=== PATIENT | female | born 1975 | race African-American/Black ===

== ENCOUNTER 2019-12-19 09:45 | Emergency (ER) | payer SELFPAY ==
[~2019-12-19] VITALS: Ht 162.6 cm; Wt 118.1 kg
[~2019-12-19 09:45] MED LIST: ADAL40PE SQ; BENZ56.72 TP; CLIN75CA2 PO; ETAN50DI2 SQ; FURO20TA3 PO; HYDR-3135 PO; IBUP-1060 PO; MELO7.5T29 PO; TIZA4TAB2 PO; TRAM50TA PO
[2019-12-19 11:10] LABS: BILIRUBIN,URINE NEGATIVE (NEG); CLARITY,URINE CLOUDY; COLOR,URINE YELLOW; NITRITE,URINE NEGATIVE (NEG); PH,URINE 5.5; PROTEIN,URINE NEGATIVE (NEG-TRACE)
[2019-12-19 11:12] LABS: BASO % 0 % (0-3); EOS # 0.2 x10^3/uL (0.0-0.7); EOS % 3 % (0-3); HEMATOCRIT 36.9 % (36.0-47.0); HEMOGLOBIN 12.4 g/dL (12.0-15.5); LYMPH # 2.6 x10^3/uL (1.0-4.8); LYMPH % 37 % (24-48); MEAN CORPUSCULAR HEMOGLOBIN 29 pg (25-35); MEAN CORPUSCULAR HGB CONC 34 g/dL (31-37); MEAN CORPUSCULAR VOLUME 87 fL (79-100); MONO # 0.5 x10^3/uL (0.0-1.1); MONO % 7 % (0-9); NEUT # 3.8 x10^3/uL (1.8-7.7); NEUT % 54 % (31-73); PLATELET COUNT 284 x10^3/uL (140-400); RED BLOOD COUNT 4.24 x10^6/uL (3.50-5.40); RED CELL DISTRIBUTION WIDTH 14.2 % (11.5-14.5); WHITE BLOOD COUNT 7.1 x10^3/uL (4.0-11.0)
[2019-12-19 11:23] LABS: CALCIUM 8.6 mg/dL (8.5-10.1); CREATININE 0.8 mg/dL (0.6-1.0); GFR 93.4; POTASSIUM 3.8 mmol/L (3.5-5.1)
[2019-12-19 11:27] LABS: ALBUMIN 3.3 g/dL (3.4-5.0); ALBUMIN/GLOBULIN RATIO 0.9 (1.0-1.7); TOTAL BILIRUBIN 0.6 mg/dL (0.2-1.0); TOTAL PROTEIN 7.1 g/dL (6.4-8.2)
[2019-12-19 11:34] LABS: SQUAMOUS EPITHELIAL CELL,UR MANY /LPF
[2019-12-19 11:42] LABS: BACTERIA,URINE MODERATE /HPF (0-FEW); RBC,URINE OCC /HPF (0-2); TRICHOMONAS,URINE PRESENT
[2019-12-19] MEDS ORDERED: IV NORMAL SALINE 1000ML BAG 1,000 ML IV ONE (12:00)
[2019-12-19] MEDS ORDERED: cefTRIAXone IV Push 1 GM VIAL. IVP ONE (12:15)
[2019-12-19] MEDS ORDERED: IOHEXOL 300 MG/ML 100ML VIAL. IV ONE (12:15)
[2019-12-19] MEDS ORDERED: CIPR500T94 PO (12:28)
[2019-12-19] MEDS ORDERED: METR500T PO (12:28)
--- NOTE | 2019-12-19 12:28 | PHYS DOC ---
Past Medical History Past Medical History: Diabetes-Type II Past Surgical History: Cholecystectomy, Alcohol Use: Occasionally Adult General Chief Complaint Chief Complaint: URINARY FREQUENCY HPI HPI Patient is a 44 year old female who presented to ER today for evaluation of painful and frequent urination, lower abdominal pain, fever and chill for 2 days. Patient denies any nausea vomiting. She denies any vaginal bleeding or dis charge. sHe denies any chest pain, no trouble breathing. Patient denies any recent illness. She denies any back pain. All other ROS is negative unless otherwise noted in HPI Review of Systems Review of Systems See above Current Medications Current Medications Current Medications Medications (Trade) Dose Ordered Sig/Ros Start Time Stop Time Status Last Admin Dose Admin Ceftriaxone Sodium (Rocephin) 1 gm 1X ONCE 12/19/19 12:15 12/19/19 12:16 DC 12/19/19 12:33 1 GM Info (CONTRAST GIVEN -- Rx MONITORING) 1 each PRN DAILY PRN 12/19/19 12:30 12/19/19 13:10 DC Iohexol (Omnipaque 300 Mg/ml) 75 ml 1X ONCE 12/19/19 12:15 12/19/19 12:16 DC 12/19/19 12:25 75 ML Sodium Chloride 1,000 ml @ 1,000 mls/hr 1X ONCE 12/19/19 12:00 12/19/19 12:59 DC 12/19/19 12:33 1,000 MLS/HR Allergies Allergies Allergies Coded Allergies Type Severity Reaction Last Updated Verified Penicillins Allergy Intermediate Itching, RASH 12/19/19 Yes Physical Exam Physical Exam See above Constitutional: Well developed, well nourished, no acute distress, non-toxic appearance. [] HENT: Normocephalic, atraumatic, bilateral external ears normal, oropharynx moist, no oral exudates, nose normal. [] Eyes: PERRLA, EOMI, conjunctiva normal, no discharge. [] Neck: Normal range of motion, no tenderness, supple, no stridor. [] Cardiovascular:Heart rate regular rhythm, no murmur [] Lungs & Thorax: Bilateral breath sounds clear to auscultation [] Abdomen: Bowel sounds normal, soft, There is tenderness to palpation in RLQ AREA AND SUPRAPUBIC AREA, no masses, no pulsatile masses. [] Skin: Warm, dry, no erythema, no rash. [] Back: No tenderness, no CVA tenderness. [] Extremities: No tenderness, no cyanosis, no clubbing, ROM intact, no edema. [] Neurologic: Alert and oriented X 3, normal motor function, normal sensory function, no focal deficits noted. [] Psychologic: Affect normal, judgement normal, mood normal. [] Current Patient Data Vital Signs Vital Signs Date Time Temp Pulse Resp B/P (MAP) Pulse Ox O2 Delivery O2 Flow Rate FiO2 12/19/19 12:35 19 123/57 (79) 100 Room Air 12/19/19 10:46 98.2 77 98.2 Lab Values Laboratory Tests Test 12/19/19 09:50 12/19/19 10:54 Urine Collection Type Void Urine Color Yellow Urine Clarity Cloudy Urine pH 5.5 Urine Specific [place] 1.025 Urine Protein Negative mg/dL (NEG-TRACE) Urine Glucose (UA) Negative mg/dL (NEG) Urine Ketones (Stick) Negative mg/dL (NEG) Urine Blood Negative (NEG) Urine Nitrite Negative (NEG) Urine Bilirubin Negative (NEG) Urine Urobilinogen Dipstick 1.0 mg/dL (0.2 mg/dL) Urine Leukocyte Esterase Small (NEG) Urine RBC Occ /HPF (0-2) Urine WBC 5-10 /HPF (0-4) Urine Squamous Epithelial Cells Many /LPF Urine Bacteria Moderate /HPF (0-FEW) Urine Trichomonas Present White Blood Count 7.1 x10^3/uL (4.0-11.0) Red Blood Count 4.24 x10^6/uL (3.50-5.40) Hemoglobin 12.4 g/dL (12.0-15.5) Hematocrit 36.9 % (36.0-47.0) Mean Corpuscular Volume 87 fL (79-100) Mean Corpuscular Hemoglobin 29 pg (25-35) Mean Corpuscular Hemoglobin Concent 34 g/dL (31-37) Red Cell Distribution Width 14.2 % (11.5-14.5) Platelet Count 284 x10^3/uL (140-400) Neutrophils (%) (Auto) 54 % (31-73) Lymphocytes (%) (Auto) 37 % (24-48) Monocytes (%) (Auto) 7 % (0-9) Eosinophils (%) (Auto) 3 % (0-3) Basophils (%) (Auto) 0 % (0-3) Neutrophils # (Auto) 3.8 x10^3/uL (1.8-7.7) Lymphocytes # (Auto) 2.6 x10^3/uL (1.0-4.8) Monocytes # (Auto) 0.5 x10^3/uL (0.0-1.1) Eosinophils # (Auto) 0.2 x10^3/uL (0.0-0.7) Basophils # (Auto) 0.0 x10^3/uL (0.0-0.2) POC Urine HCG, Qualitative Hcg negative (Negative) Sodium Level 140 mmol/L (136-145) Potassium Level 3.8 mmol/L (3.5-5.1) Chloride Level 106 mmol/L (98-107) Carbon Dioxide Level 24 mmol/L (21-32) Anion Gap 10 (6-14) Blood Urea Nitrogen 12 mg/dL (7-20) Creatinine 0.8 mg/dL (0.6-1.0) Estimated GFR (Cockcroft-Gault) 93.4 BUN/Creatinine Ratio 15 (6-20) Glucose Level 120 mg/dL (70-99) H Calcium Level 8.6 mg/dL (8.5-10.1) Total Bilirubin 0.6 mg/dL (0.2-1.0) Aspartate Amino Transferase (AST) 15 U/L (15-37) Alanine Aminotransferase (ALT) 10 U/L (14-59) L Alkaline Phosphatase 80 U/L (46-116) Total Protein 7.1 g/dL (6.4-8.2) Albumin 3.3 g/dL (3.4-5.0) L Albumin/Globulin Ratio 0.9 (1.0-1.7) L Laboratory Tests 12/19/19 10:54 Laboratory Tests 12/19/19 10:54 EKG EKG [] Radiology/Procedures Radiology/Procedures She had CT scan of her abdomen and pelvic done in the ER, however she did not want to wait for the result, she says she has to go home [place] to take care of family. Patient said she will call back for the result. Course & Med Decision Making Course & Med Decision Making Pertinent Labs and Imaging studies reviewed. (See chart for details) [] Dragon Disclaimer Dragon Disclaimer This electronic medical record was generated, in whole or in part, using a voice recognition dictation system. Departure Departure Impression: Primary Impression: Urinary tract infection Additional Impression: Trichomonal infection Disposition: 01 HOME, SELF-CARE Condition: STABLE Referrals: JOSEFINA PETERS MD (PCP) FOLLOW UP WITH YOUR DOCTOR IN 2 DAYS IF NOT GETTING BETTER. Patient Instructions: Trichomoniasis, Urinary Tract Infection Additional Instructions: Thank you for visiting our Emergency Department. We appreciate you trusting us with your care. If any additional problems come up don't hesitate to return to visit us. Please follow up with your primary care provider so they can plan a dditional care if needed and know about the problem that you had. If symptoms worsen come back to the Emergency Department. Any concerning symptoms that start such as chest pain, shortness of air, weakness or numbness on one side of the body, running high fevers or any other concerning symptoms return to the ER. Scripts Metronidazole (FLAGYL) 500 Mg Tablet 1 TAB PO BID for 7 Days, #14 TAB Prov: GRETCHEN VELEZ DO 12/19/19 Ciprofloxacin Hcl (CIPRO) 500 Mg Tablet 1 TAB PO BID for 7 Days, #14 TAB 0 Refills Prov: GRETCHEN VELEZ DO 12/19/19 Problem Qualifiers GRETCHEN VELEZ DO Dec 19, 2019 12:28
[2019-12-19] MEDS ORDERED: CONTRAST GIVEN. MC PRN (12:30)
[2019-12-19 12:35] VITALS: BP 123/57
--- NOTE | 2019-12-19 12:44 | RAD ---
CT ABD PELV W/ IV CONTRST ONLY Indication: Right lower quadrant pain. Exposure: One or more of the following individualized dose reduction techniques were utilized for this examination: 1. Automated exposure control 2. Adjustment of the mA and/or kV according to patient size 3. Use of iterative reconstruction technique. Technique: Intravenous contrast was given. No oral contrast per request. Comparison: None FINDINGS: Lung bases are clear. Tiny hypodense lesion within the right liver measuring 5 mm, too small to characterize. Liver otherwise unremarkable. Spleen unremarkable. Pancreas unremarkable. No evidence of adrenal mass. Kidneys demonstrate symmetric enhancement without evidence of hydronephrosis or dominant mass. Gallbladder is surgically absent. Aorta is nonaneurysmal. No evidence of significant lymph node enlargement. Stomach is not distended. No significant small bowel distention. No evidence of acute colitis. The appendix appears normal. No significant pneumoperitoneum or ascites. Urinary bladder is incompletely distended but appears grossly unremarkable. The uterus is mildly heterogeneous, with some areas of slight hyperdensity. Findings may be due to uterine fibroids. Vertebral body height and alignment intact. Mild degenerative spondylosis. IMPRESSION: 1. No evidence of acute abnormality. The appendix is visualized and appears within normal limits. 2. Tiny subcentimeter hepatic lesion is too small to characterize, but would most commonly be benign in the absence of other risk factors. 3. Somewhat enlarged and heterogeneous uterus, could be due to fibroids. Electronically signed by: Alverto James MD (12/19/2019 12:41 PM) [id number]
== END 2019-12-19 12:58 | disposition home or self-care (01) ==
LOC: ER 09:45
DX: N39.0 Urinary tract infection, site not specified (principal); A59.9 Trichomoniasis, unspecified; R10.31 Right lower quadrant pain; E11.9 Type 2 diabetes mellitus without complications; Z90.49 Acquired absence of other specified parts of digestive tract; Z98.890 Other specified postprocedural states; Z88.0 Allergy status to penicillin
CPT/HCPCS: 36415; 74177; 80053; 81001; 81025; 85025; 87086; 96374; 99285; J0696; J7030; Q9967